=== PATIENT | male | born 1990 | race Caucasian/White ===

== ENCOUNTER 2023-03-31 20:37 | Emergency (ER) | payer OTHER ==
[2023-03-31 20:49] VITALS: BP 129/69; PULSE 95; RESP 18; TEMP 99.7; BMI 27.9
[2023-03-31] MEDS ORDERED: ACETAMINOPHEN 500 MG TABLET (FP) PO ONE (22:04)
[2023-03-31] MEDS ORDERED: SODIUM CHLORIDE 0.9% 500 ML INFUS.BAG IV ONE (22:04)
[2023-03-31] MEDS ORDERED: ACETAMINOPHEN 500 MG TABLET (FP) ONE (22:08)
[2023-03-31] MEDS ORDERED: CEFAZOLIN 1 GM in DEXTROSE 5%-WATER - 50 ML IVPB ONE (22:50)
[2023-03-31 22:59] LABS: INR 1.06 (0.83-1.09); PROTHROMBIN TIME (PATIENT) 12.3 SEC (9.7-13.0)
[2023-03-31 23:01] LABS: BASO % 0.4 % (0-2.0); EOS % 2.2 % (0-4.5); HEMATOCRIT 48.5 % (35.4-49); HEMOGLOBIN 15.7 GM/dL (11.7-16.9); LYMPH % 23.3 % (8-40); MCH 25.6 pg (25.7-33.7); MCHC 32.3 g/dl (32.0-35.9); MEAN CELL VOLUME 79.3 fl (80-96); MEAN PLT VOLUME 9.3 fl (7.5-11.1); MONO % 8.2 % (3.8-10.2); NEUT % 65.9 % (42.8-82.8); PLATELET COUNT 205 10^3/uL (134-434); RBC 6.12 M/mm3 (4.00-5.60); RDW 13.7 % (11.9-15.9); WHITE BLOOD COUNT 11.4 K/mm3 (4.0-10.0)
[2023-03-31 23:02] LABS: ACTIVATED PTT 32.4 SECONDS (25.2-36.5)
[2023-03-31] MEDS ORDERED: ceFAZolin SODIUM 1 GM VIAL ONE (23:06)
[2023-03-31 23:17] LABS: POTASSIUM 3.9 mmol/L (3.5-5.1)
[2023-03-31 23:20] LABS: CALCIUM 9.1 mg/dL (8.5-10.1)
[2023-03-31 23:21] LABS: ALBUMIN 4.1 g/dl (3.4-5.0); BLOOD UREA NITROGEN 12.4 mg/dL (7-18)
[2023-03-31 23:24] LABS: CREATININE 1.2 mg/dL (0.55-1.3)
[2023-03-31 23:25] LABS: TOT PROT 8.4 g/dl (6.4-8.2)
[2023-03-31 23:26] LABS: BILIRUBIN,TOTAL 0.5 mg/dL (0.2-1)
== END 2023-04-01 00:35 | disposition home or self-care (01) ==
LOC: JERFT 20:37 → JER 20:37
DX: L02.211 Cutaneous abscess of abdominal wall (principal); R19.00 Intra-abdominal and pelvic swelling, mass and lump, unspecified site; L53.9 Erythematous condition, unspecified; R50.9 Fever, unspecified; M79.10 Myalgia, unspecified site; R51.9 Headache, unspecified; N73.9 Female pelvic inflammatory disease, unspecified; Z20.822 Contact with and (suspected) exposure to COVID-19
CPT/HCPCS: 0241U-QW; 36415; 76705-TC; 80053; 85025; 85610; 85730; 86850; 86900; 86901; 87040; 99284-25

== ENCOUNTER 2023-11-01 18:25 | Emergency (ER) | payer OTHER ==
[2023-11-01 18:34] VITALS: BP 125/86; PULSE 83; RESP 18; TEMP 98; BMI 27.4
== END 2023-11-01 19:31 | disposition home or self-care (01) ==
LOC: JERFT 18:25
DX: R21 Rash and other nonspecific skin eruption (principal); M79.651 Pain in right thigh; M79.89 Other specified soft tissue disorders; L03.115 Cellulitis of right lower limb; B35.6 Tinea cruris
CPT/HCPCS: 99283-25